=== PATIENT | male | born 1955 | race African-American/Black ===

== ENCOUNTER 2019-01-23 13:19 | Inpatient (IN) | payer OTHER ==
[~2019-01-23] VITALS: Ht 165.1 cm; Wt 61.2 kg
[~2019-01-23 13:19] MED LIST: AMLODIPINE BESY10 MG PO; ASPIR-LOW81 MG PO; ATORVASTATIN CA10 MG PO; AZITHROMYCIN250 MG PO; DIOVAN40 MG PO; EPZICOM1 TAB PO; HYDROCHLOROTHIA25 MG PO; MULTIVITAMINS1 EAC8 PO; PHENERGAN/CODE120 ML PO; RESTORIL7.5 MG PO; REYATAZ200 MG PO; RISPERDAL2 MG PO; VITAMIN D1000 UNI1 PO; ZYPREXA5 MG PO
[2019-01-23] MEDS ORDERED: TRAZODONE HCL50 MG ORAL (13:23)
[2019-01-23] MEDS ORDERED: EVOTAZ 300 MG-1 EACH PO (13:23)
--- NOTE | 2019-01-23 13:25 | NUR ---
ED Nurse Note: Pt came from [facility] due to abcess noted on the rectum "hard as a rock" x 1 week. Pt is complaining of 10/10 pain in the area. Non radiating. Pt is A + O x2-3. Skin warm to touch. Pt is HIV positive.
[2019-01-23 13:29] VITALS: BP 166/111
[2019-01-23] MEDS ORDERED: Morphine Sulfate 4mg/ml Inj (IV USE ONLY) IVP ONE (13:30)
[2019-01-23 14:13] LABS: BASOPHILS % (AUTO) 1.1 % (0.0-2.0); EOSINOPHILS % (AUTO) 0.9 % (0.0-3.0); HEMATOCRIT 47.8 % (42.0-52.0); HEMOGLOBIN 15.8 G/DL (14.2-18.0); LYMPHOCYTES % (AUTO) 51.4 % (20.0-45.0); MEAN CORPUSCULAR VOLUME 93 FL (80-99); MONOCYTES % (AUTO) 9.4 % (1.0-10.0); NEUTROPHILS % (AUTO) 37.1 % (45.0-75.0); PLATELET COUNT 204 K/UL (150-450); RED BLOOD COUNT 5.16 M/UL (4.70-6.10); RED CELL DISTRIBUTION WIDTH 13.7 % (11.6-14.8); WHITE BLOOD COUNT 6.1 K/UL (4.8-10.8)
--- NOTE | 2019-01-23 14:15 | NUR ---
ED Nurse Note: Xray at the bedside.
[2019-01-23 14:30] LABS: ANION GAP 9 mmol/L (5-15); BLOOD UREA NITROGEN 21 mg/dL (7-18); CALCIUM 9.5 MG/DL (8.5-10.1); CARBON DIOXIDE 26 MMOL/L (21-32); CHLORIDE 100 MMOL/L (98-107); CREATININE 0.7 MG/DL (0.55-1.30); POTASSIUM 4.8 MMOL/L (3.5-5.1); SODIUM 135 MMOL/L (136-145)
[2019-01-23 14:36] LABS: APPEARANCE,URINE CLEAR; BILIRUBIN, URINE 1+ (NEGATIVE); COLOR,URINE BROWN; GLUCOSE, URINE (UA) NEGATIVE (NEGATIVE); KETONES,URINE 1+ (NEGATIVE); LEUKOCYTE ESTERASE ,URINE 1+ (NEGATIVE); NITRITE,URINE NEGATIVE (NEGATIVE); PH,URINE 5 (4.5-8.0); PROTEIN,URINE 2+ (NEGATIVE); UROBILINOGEN,URINE 4 MG/DL (0.0-1.0)
[2019-01-23 14:42] LABS: ALANINE AMINOTRANSFERASE 47 U/L (12-78); ALBUMIN/GLOBULIN RATIO 0.4 (1.0-2.7); ALKALINE PHOSPHATASE 70 U/L (46-116); ASPARTATE AMINO TRANSFERASE 69 U/L (15-37); BILIRUBIN,TOTAL 2.4 MG/DL (0.2-1.0); CREATINE KINASE 106 U/L (26-308)
[2019-01-23 14:49] LABS: BILIRUBIN,DIRECT 0.2 MG/DL (0.0-0.3)
[2019-01-23] MEDS ORDERED: Piperacillin/Tazobactam 3.375 GM in NS 110 ML IVPB ONE (15:30)
--- NOTE | 2019-01-23 15:30 | Emergency Room Report ---
History of Present Illness General Chief Complaint: Skin Rash/Abscess Source: Patient, EMS Present Illness HPI Patient presents with several days of worsening pain in his buttock area. There are also some hard bumps in that area. He denies any fevers or chills. He was sent for evaluation of these. He is from a prison facility and spends most of his time sitting. These have not been treated. Patient is HIV positive and stable on antivirals. No fevers, chills, chest pain, palpitations, nausea, vomiting, diarrhea, dysuria , abdominal pain, shortness of breath, depression, visual changes, headache. 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 Reviewed Nursing Documentation: PMH: Agreed; PSxH: Agreed Nursing Documentation-PMH Past Medical History: No History, Except For Hx Cardiac Problems: No - AIDS Hx Hypertension: Yes Hx Diabetes: Yes History Of Psychiatric Problem: Yes Review of Systems All Other Systems: negative except mentioned in HPI Physical Exam Vital Signs Date Time Temp Pulse Resp B/P (MAP) Pulse Ox O2 Delivery O2 Flow Rate FiO2 01/23/19 13:19 98.2 84 18 120/80 94 Room Air Sp02 EP Interpretation: reviewed, normal General Appearance: well appearing, no apparent distress, GCS 15 Head: normocephalic, atraumatic Eyes: bilateral eye normal inspection, bilateral eye PERRL, bilateral eye EOMI ENT: moist mucus membranes Neck: supple Respiratory: lungs clear, normal breath sounds Cardiovascular #1: regular rate, rhythm Cardiovascular #2: 2+ radial (R) Gastrointestinal: normal inspection, normal bowel sounds, non tender, no mass, non-distended Genitourinary: no CVA tenderness Musculoskeletal: back normal, normal range of motion Neurologic: alert, sensory intact, motor weakness - Lower extremity, oriented - X2 Psychiatric: mood/affect normal Skin: warm/dry, other - Area of induration 2 x 4 cm with possible fluctuance and tenderness with erythema. This is in the gluteal area more in the left hand side Medical Decision Making Diagnostic Impression: Primary Impression: Gluteal abscess Additional Impressions: Diabetes Qualified Codes: E11.8 - Type 2 diabetes mellitus with unspecified complications Immunocompromised Horseshoe abscess of ischiorectal space ER Course Patient presents with gluteal pain, inflammation redness. Differential includes abscess, cellulitis amongst others. The patient is not ambulatory and therefore these areas are going to be dependent and may be difficult to treat as an outpatient. The patient does not appear to be toxic at this time. However evaluation will be with EKG, chest x-ray and labs including sed rate and C-reactive protein. Imaging is not indicated at the moment. However broad- spectrum antibiotics are begun. In addition the patient is given analgesia. White blood cell count low. CMP unremarkable. Sed rate normal. C-reactive protein elevated. Patient was examined by Dr. Sarah in the emergency department. Patient improved with treatment. Admit medical floor. Laboratory Tests Test 01/23/19 13:45 01/23/19 14:05 White Blood Count 6.1 K/UL (4.8-10.8) Red Blood Count 5.16 M/UL (4.70-6.10) Hemoglobin 15.8 G/DL (14.2-18.0) Hematocrit 47.8 % (42.0-52.0) Mean Corpuscular Volume 93 FL (80-99) Mean Corpuscular Hemoglobin 30.7 PG (27.0-31.0) Mean Corpuscular Hemoglobin Concent 33.1 G/DL (32.0-36.0) Red Cell Distribution Width 13.7 % (11.6-14.8) Platelet Count 204 K/UL (150-450) Mean Platelet Volume 7.7 FL (6.5-10.1) Neutrophils (%) (Auto) 37.1 % (45.0-75.0) L Lymphocytes (%) (Auto) 51.4 % (20.0-45.0) H Monocytes (%) (Auto) 9.4 % (1.0-10.0) Eosinophils (%) (Auto) 0.9 % (0.0-3.0) Basophils (%) (Auto) 1.1 % (0.0-2.0) Erythrocyte Sedimentation Rate 15 MM/HR (0-20) Prothrombin Time 11.0 SEC (9.30-11.50) Prothrombin Time INR 1.0 (0.9-1.1) PTT 32 SEC (23-33) Sodium Level 135 MMOL/L (136-145) L Potassium Level 4.8 MMOL/L (3.5-5.1) Chloride Level 100 MMOL/L (98-107) Carbon Dioxide Level 26 MMOL/L (21-32) Anion Gap 9 mmol/L (5-15) Blood Urea Nitrogen 21 mg/dL (7-18) H Creatinine 0.7 MG/DL (0.55-1.30) Estimate Glomerular Filtration Rate > 60 mL/min (>60) Glucose Level 105 MG/DL (74-106) Lactic Acid Level 1.20 mmol/L (0.4-2.0) Calcium Level 9.5 MG/DL (8.5-10.1) Magnesium Level 2.3 MG/DL (1.8-2.4) Total Bilirubin 2.4 MG/DL (0.2-1.0) H Direct Bilirubin 0.2 MG/DL (0.0-0.3) Aspartate Amino Transferase (AST) 69 U/L (15-37) H Alanine Aminotransferase (ALT) 47 U/L (12-78) Alkaline Phosphatase 70 U/L (46-116) Total Creatine Kinase 106 U/L (26-308) Troponin I 0.000 ng/mL (0.000-0.056) C-Reactive Protein, Quantitative 3.1 mg/dL (0.00-0.90) H Pro-B-Type Natriuretic Peptide 79 pg/mL (0-125) Total Protein 9.7 G/DL (6.4-8.2) H Albumin 3.0 G/DL (3.4-5.0) L Globulin 6.7 g/dL Albumin/Globulin Ratio 0.4 (1.0-2.7) L Urine Color Brown Urine Appearance Clear Urine pH 5 (4.5-8.0) Urine Specific [place] 1.020 (1.005-1.035) Urine Protein 2+ (NEGATIVE) H Urine Glucose (UA) Negative (NEGATIVE) Urine Ketones 1+ (NEGATIVE) H Urine Blood Negative (NEGATIVE) Urine Nitrite Negative (NEGATIVE) Urine Bilirubin 1+ (NEGATIVE) H Urine Ictotest Negative (NEGATIVE) Urine Urobilinogen 4 MG/DL (0.0-1.0) H Urine Leukocyte Esterase 1+ (NEGATIVE) H Urine RBC 0 /HPF (0 - 0) Urine WBC 0-2 /HPF (0 - 0) Urine Squamous Epithelial Cells Occasional /LPF Urine Bacteria Few /HPF (NONE) Urine Mucus Few /LPF (NONE/OCC) H EKG Diagnostic Results Rate: normal Rhythm: NSR ST Segments: no acute changes - HO enlargement minimal ditch criteria for LVH nonspecific ST-T wave changes Rhythm Strip Diag. Results EP Interpretation: yes Rhythm: NSR, no PVC's, no ectopy Chest X-Ray Diagnostic Results Chest X-Ray Diagnostic Results : Chest X-Ray Ordered: Yes # of Views/Limited/Complete: 1 View Indication: Other EP Interpretation: Yes Interpretation: no consolidation, no effusion, no pneumothorax Impression: No acute disease Electronically Signed by: Electronically signed by Theo Kay MD Last Vital Signs Date Time Temp Pulse Resp B/P (MAP) Pulse Ox O2 Delivery O2 Flow Rate FiO2 01/23/19 21:00 Room Air 01/23/19 20:00 100.6 91 18 112/77 (89) 94 Status: improved Disposition: ADMITTED INPATIENT Condition: Serious Referrals: [facility],REFERR[facility] (PCP) Theo Kay MD Jan 23, 2019 15:30
--- NOTE | 2019-01-23 15:41 | Consultation ---
History of Present Illness General Date patient seen: Jan 23, 2019 Reason for Hospitalization: Skin Rash/Abscess Present Illness HPI This is a very pleasant 63 year old male in custodial who presented with worsening buttock pain for "a few days" Cannot recall when pain began but feels that a few days ago he had difficulty sitting or laying flat on buttock. pain sharp 8/10. no radiation. no prior similar events. no drainage. came to ED for evaluation. labs noted. exam with bilateral buttock cellulitis/ induration with significant tenderness L>R. surgery called to evaluate. patient seen, chart reviewed, patient examined. Allergies: Coded Allergies: No Known Allergies (Unverified , 11/10/12) Medication History Scheduled Amlodipine Besylate* (Amlodipine Besylate*), 10 MG PO DAILY, (Reported) Aspirin* (Aspir-Low*), 81 MG PO DAILY, (Reported) Atazanavir Sulfate (Reyataz), 200 MG PO BID, (Reported) Atazanavir Sulfate/Cobicistat (Evotaz 300 mg-150 mg Tablet), 1 EACH PO DAILY, ( Reported) Atorvastatin Calcium* (Lipitor*), 10 MG PO QHS, (Reported) Azithromycin* (Zithromax*), 250 MG PO DAILY Cholecalciferol (Vitamin D3)* (Vitamin D*), 2,000 UNITS PO DAILY, (Reported) Epzicom (Epzicom Tablet), 1 TAB PO DAILY, (Reported) Hydrochlorothiazide* (Hydrochlorothiazide*), 25 MG PO DAILY, (Reported) Multivitamin With Minerals (Multivitamins With Minerals*), 1 EACH PO DAILY, ( Reported) Olanzapine* (Zyprexa*), 15 MG PO DAILY, (Reported) Promethazine/Codeine* (Phenergan/Codeine*), 5 ML PO Q4H Risperidone* (Risperdal*), 2 MG PO HS, (Reported) Temazepam* (Restoril*), 15 MG PO QHS, (Reported) Trazodone Hcl* (Desyrel*), 50 MG ORAL BEDTIME, (Reported) Valsartan (Diovan), 40 MG PO DAILY, (Reported) Patient History History Provided By: Patient, Medical Record, PMD Healthcare decision maker Resuscitation status Advanced Directive on File Past Medical/Surgical History Past Medical/Surgical History: (1) Abscess Review of Systems Review of Symptoms General ROS: no weight loss or fever Psychological ROS: no depression or mood changes, no memory loss Ophthalmic ROS: no visual changes or eye irritation ENT ROS: no nasal congestion, hearing loss, dizziness Allergy and Immunology ROS: no allergic symptoms or urticaria Hematological and Lymphatic ROS: no swollen glands, unusual bleeding or bruising Endocrine ROS: no polyuria, polydipsia, weight changes, temperature intolerance Respiratory ROS: no cough, shortness of breath, or wheezing Cardiovascular ROS: no chest pain or dyspnea on exertion Gastrointestinal ROS: denies abdominal pain, no bright red blood in stool. Musculoskeletal ROS: no myalgias or arthralgias Neurological ROS: no TIA or stroke symptoms Dermatological ROS: no new or changing skin lesions, rashes or pruritis Physical Exam Physical Exam General appearance: alert, cooperative, no distress, appears stated age Head: Normocephalic, without obvious abnormality, atraumatic Eyes: conjunctivae/corneas clear. PERRL, EOM's intact. Fundi benign Throat: Lips, mucosa, and tongue normal. Teeth and gums normal Neck: supple, symmetrical, trachea midline, no adenopathy, thyroid: not enlarged, symmetric, no tenderness/mass/nodules, no carotid bruit and no JVD Lungs: clear to auscultation bilaterally Heart: regular rate and rhythm, S1, S2 normal, no murmur, click, rub or gallop Abdomen: soft, non-tender. Bowel sounds normal. No masses, no organomegaly Extremities: extremities normal, atraumatic, no cyanosis or edema Pulses: 2+ and symmetric Skin: Skin color, texture, turgor normal. No rashes or lesions. Abnormal bilateral buttock cellulitis and induration with tenderness. no significant area of fluctuance noted. no drainage. erythema. warm. edema. ?horseshoe abscess deep? Neurologic: Grossly normal Last 24 Hour Vital Signs Date Time Temp Pulse Resp B/P (MAP) Pulse Ox O2 Delivery O2 Flow Rate FiO2 01/23/19 14:32 98.1 01/23/19 13:29 98.1 82 27 166/111 100 Room Air 01/23/19 13:19 98.2 84 18 120/80 94 Room Air Laboratory Tests Test 01/23/19 13:45 01/23/19 14:05 White Blood Count 6.1 K/UL (4.8-10.8) Red Blood Count 5.16 M/UL (4.70-6.10) Hemoglobin 15.8 G/DL (14.2-18.0) Hematocrit 47.8 % (42.0-52.0) Mean Corpuscular Volume 93 FL (80-99) Mean Corpuscular Hemoglobin 30.7 PG (27.0-31.0) Mean Corpuscular Hemoglobin Concent 33.1 G/DL (32.0-36.0) Red Cell Distribution Width 13.7 % (11.6-14.8) Platelet Count 204 K/UL (150-450) Mean Platelet Volume 7.7 FL (6.5-10.1) Neutrophils (%) (Auto) 37.1 % (45.0-75.0) L Lymphocytes (%) (Auto) 51.4 % (20.0-45.0) H Monocytes (%) (Auto) 9.4 % (1.0-10.0) Eosinophils (%) (Auto) 0.9 % (0.0-3.0) Basophils (%) (Auto) 1.1 % (0.0-2.0) Erythrocyte Sedimentation Rate 15 MM/HR (0-20) Prothrombin Time 11.0 SEC (9.30-11.50) Prothromb Time International Ratio 1.0 (0.9-1.1) Activated Partial Thromboplast Time 32 SEC (23-33) Sodium Level 135 MMOL/L (136-145) L Potassium Level 4.8 MMOL/L (3.5-5.1) Chloride Level 100 MMOL/L (98-107) Carbon Dioxide Level 26 MMOL/L (21-32) Anion Gap 9 mmol/L (5-15) Blood Urea Nitrogen 21 mg/dL (7-18) H Creatinine 0.7 MG/DL (0.55-1.30) Estimat Glomerular Filtration Rate > 60 mL/min (>60) Glucose Level 105 MG/DL (74-106) Lactic Acid Level 1.20 mmol/L (0.4-2.0) Calcium Level 9.5 MG/DL (8.5-10.1) Magnesium Level 2.3 MG/DL (1.8-2.4) Total Bilirubin 2.4 MG/DL (0.2-1.0) H Direct Bilirubin 0.2 MG/DL (0.0-0.3) Aspartate Amino Transf (AST/SGOT) 69 U/L (15-37) H Alanine Aminotransferase (ALT/SGPT) 47 U/L (12-78) Alkaline Phosphatase 70 U/L (46-116) Total Creatine Kinase 106 U/L (26-308) Troponin I 0.000 ng/mL (0.000-0.056) C-Reactive Protein, Quantitative 3.1 mg/dL (0.00-0.90) H Pro-B-Type Natriuretic Peptide 79 pg/mL (0-125) Total Protein 9.7 G/DL (6.4-8.2) H Albumin 3.0 G/DL (3.4-5.0) L Globulin 6.7 g/dL Albumin/Globulin Ratio 0.4 (1.0-2.7) L Urine Color Brown Urine Appearance Clear Urine pH 5 (4.5-8.0) Urine Specific [place] 1.020 (1.005-1.035) Urine Protein 2+ (NEGATIVE) H Urine Glucose (UA) Negative (NEGATIVE) Urine Ketones 1+ (NEGATIVE) H Urine Blood Negative (NEGATIVE) Urine Nitrite Negative (NEGATIVE) Urine Bilirubin 1+ (NEGATIVE) H Urine Ictotest Negative (NEGATIVE) Urine Urobilinogen 4 MG/DL (0.0-1.0) H Urine Leukocyte Esterase 1+ (NEGATIVE) H Urine RBC 0 /HPF (0 - 0) Urine WBC 0-2 /HPF (0 - 0) Urine Squamous Epithelial Cells Occasional /LPF Urine Bacteria Few /HPF (NONE) Urine Mucus Few /LPF (NONE/OCC) H Height (Feet): 5 Height (Inches): 5.00 Weight (Pounds): 135 Medications Current Medications Medications (Trade) Dose Ordered Sig/Joseph Route PRN Reason Start Time Stop Time Status Last Admin Dose Admin Piperacillin Sod/ Tazobactam Sod 3.375 gm/Sodium Chloride 110 ml @ 220 mls/hr ONCE ONCE IVPB 01/23/19 15:30 01/23/19 15:59 01/23/19 15:32 Sodium Chloride 1,000 ml @ 300 mls/hr Q3H20M IV 01/23/19 13:30 02/22/19 13:29 01/23/19 14:02 Assessment/Plan Problem List: (1) Abscess ICD Codes: L02.91 - Cutaneous abscess, unspecified SNOMED: 305550180 (2) Diabetes ICD Codes: E11.9 - Type 2 diabetes mellitus without complications SNOMED: 77144966 (3) Gluteal abscess ICD Codes: L02.31 - Cutaneous abscess of buttock SNOMED: 23543918 (4) Immunocompromised ICD Codes: D84.9 - Immunodeficiency, unspecified SNOMED: 070258376 (5) Horseshoe abscess of ischiorectal space Assessment & Plan: Given bilaterality if patients presenting symptoms possible horseshoe no fluctuance palpable but does have cellulitis and tenderness no drainage no leukocytosis. Admit to Hospital IV abx IV fluids okay for diet for now NPO p MN will re-evaluate / examine in AM. if not improved will need OR for exploration and possible drainage discussed findings and care plan with patient thank you will follow with recs. ICD Codes: K61.31 - Horseshoe abscess SNOMED: 99868977 Samm Sarah Jan 23, 2019 15:41
[2019-01-23 15:46] VITALS: BP 165/100
--- NOTE | 2019-01-23 15:48 | Diagnostic Imaging Report ---
Indication: Chest pain Technique: One view of the chest Comparison: 11/10/2012 Findings: The heart size is normal. The lungs and pleural spaces are clear. No significant interim change Impression: No acute process
--- NOTE | 2019-01-23 16:10 | NUR ---
ED Nurse Note: Gave telephone report to TRICE Arroyo.
[2019-01-23] MEDS ORDERED: Morphine Sulfate 2mg/ml Inj(IV/IM USE ONLY) IVP PRN (16:15)
[2019-01-23] MEDS ORDERED: Albuterol/Ipratropium 3ml neb HHN PRN (16:15)
[2019-01-23] MEDS ORDERED: Nitroglycerin Subl 0.4mg tab SL PRN (16:15)
[2019-01-23] MEDS ORDERED: Miralax 17gm pkt ORAL PRN (16:15)
--- NOTE | 2019-01-23 16:22 | NUR ---
ED Nurse Note: Pt transferred up to ed surg unit. No acute distress noted. Left ER w/ all belongings.
--- NOTE | 2019-01-23 16:25 | NUR ---
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
[2019-01-23 16:40] VITALS: BP 130/84
[2019-01-23] MEDS ORDERED: Vancomycin 1.25gm Premix IVPB SCH (18:00)
--- NOTE | 2019-01-23 19:25 | NUR ---
HAND-OFF: Report given to CIRILO CARNES.PATIENT STABLE.
--- NOTE | 2019-01-23 19:48 | NUR ---
NURSE NOTES: Received patient in bed, no acute distress noted, VSS, afebrile, call light is within reach, bed is in low position, locked and alarm is on, will continue to monitor for safety and comfort.
[2019-01-23 20:00] VITALS: BP 112/77
--- NOTE | 2019-01-23 20:04 | History & Physical ---
History and Physical History & Physicial Dictated for Int Med-DR Contreras no. [id number] Travon Pena MD Jan 23, 2019 20:04
[2019-01-23] MEDS: TraZODone 50mg tab ORAL SCH (20:55)
[2019-01-23] MEDS: Cefepime HCl 2 GM in D5W 110 ML IV SCH (20:55)
[2019-01-23] MEDS: Heparin 5000 units/ml inj SUBQ SCH (20:57)
[2019-01-24] VITALS (7 sets, daily range): BP systolic 112–143; BP diastolic 75–91
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
[2019-01-24] MEDS ORDERED: Vancomycin 1 GM in D5W 275 ML IV SCH (00:30)
[2019-01-24] MEDS: Vancomycin 750mg/NS 275ml IVPB SCH ×6 (02:27→17:29)
[2019-01-24 06:42] LABS: BASOPHILS % (AUTO) 1.5 % (0.0-2.0); EOSINOPHILS % (AUTO) 1.2 % (0.0-3.0); HEMOGLOBIN 12.3 G/DL (14.2-18.0); LYMPHOCYTES % (AUTO) 53.7 % (20.0-45.0); MEAN CORPUSCULAR VOLUME 93 FL (80-99); NEUTROPHILS % (AUTO) 31.6 % (45.0-75.0); PLATELET COUNT 174 K/UL (150-450); RED CELL DISTRIBUTION WIDTH 13.7 % (11.6-14.8); WHITE BLOOD COUNT 6.4 K/UL (4.8-10.8)
--- NOTE | 2019-01-24 06:51 | NUR ---
HAND-OFF: Report given to Shauna CARNES.
[2019-01-24 07:04] LABS: ALANINE AMINOTRANSFERASE 40 U/L (12-78); ALBUMIN 2.6 G/DL (3.4-5.0); ALBUMIN/GLOBULIN RATIO 0.5 (1.0-2.7); ALKALINE PHOSPHATASE 59 U/L (46-116); ANION GAP 9 mmol/L (5-15); ASPARTATE AMINO TRANSFERASE 40 U/L (15-37); BILIRUBIN,TOTAL 1.6 MG/DL (0.2-1.0); BLOOD UREA NITROGEN 17 mg/dL (7-18); CALCIUM 8.3 MG/DL (8.5-10.1); CARBON DIOXIDE 24 MMOL/L (21-32); CHLORIDE 105 MMOL/L (98-107); CREATININE 0.8 MG/DL (0.55-1.30); POTASSIUM 4.1 MMOL/L (3.5-5.1); SODIUM 138 MMOL/L (136-145)
[2019-01-24 07:05] LABS: BILIRUBIN,DIRECT 0.4 MG/DL (0.0-0.3)
[2019-01-24] MEDS ORDERED: Isovue-300 100ml vial INJ PRN (08:00)
--- NOTE | 2019-01-24 08:00 | NUR ---
NURSE NOTES: Received report from Rachael CARNES, pt a/a/o x4 laying in bed with no signs of distress or other issues at this time. pt is on bed rest, none ambulatory. NPO for CT abd with contrast. IV on the left HAN gauge #22 running D5NS@100ml/hr. call light within reach, bed in lowest position. side rales up x2. I will f/u as needed.
[2019-01-24] MEDS ORDERED: Epzicom tab ORAL SCH (09:00)
[2019-01-24] MEDS: D5NS 1,000 ML IV SCH ×2 (09:14→18:00)
[2019-01-24] MEDS: Cefepime HCl 2 GM in D5W 110 ML IV SCH ×2 (09:15→23:07)
[2019-01-24] MEDS: OLANZapine 10mg tab ORAL SCH (10:25)
[2019-01-24] MEDS: Heparin 5000 units/ml inj SUBQ SCH ×2 (10:27→23:23)
--- NOTE | 2019-01-24 11:19 | Diagnostic Imaging Report ---
Clinical Indication: Pain and swelling of the left buttock Technique: Patient given oral contrast. IV administration nonionic contrast. Venous phase spiral acquisition obtained through the abdomen and pelvis. Multiplanar reconstructions were generated. Total dose length product 888.17 mGycm. CTDIvol(s) 12.33,14.79 mGy. Dose reduction achieved using automated exposure control Comparison: none Findings: There is increased attenuation of the subcutaneous fat of the left posterior perineum and medial buttock. At the superior aspect, there is a small focal area of ill-defined low-attenuation immediately deep to the skin which measures 13 mm in diameter. This does not demonstrate an enhancing rim. No other evidence of fluid. No evidence of diverticulosis or diverticulitis. There is a moderate amount of retained fecal material. The appendix is normal. No small bowel dilatation or small bowel wall thickening. Contrast traverses entirety of the small bowel and reaches the ascending colon. No free or loculated intraperitoneal gas or fluid is evident. There is mild thickening of the distal esophageal wall. The stomach, duodenum are unremarkable. There is a small fat-containing ventral hernia. The liver, gallbladder, bile ducts, pancreas, spleen, adrenals are unremarkable. The kidneys demonstrate bilateral subcentimeter low-attenuation lesions which are too small to characterize. There is also an 11 mm cyst which is clearly fluid attenuation in the upper pole. No renal or ureteral calculi, hydronephrosis, or hydroureter. No pelvic mass or adenopathy. The bladder is distended. The included lung bases demonstrate some atelectatic changes. The bones are unremarkable.. Impression: Increased attenuation of the subcutaneous fat of the inferomedial left buttock, extending slightly into the posterior perineum. Appearance is consistent with cellulitis. There is a subtle area of slightly lower attenuation at the subpleural medial aspect of this without definite rim enhancement measuring 12 mm in diameter which could represent a developing abscess Considerable retained fecal material. Correlate with any history of constipation Mild distal esophageal wall thickening, could indicate esophagitis. Correlate with clinical findings Right renal cysts. Subcentimeter low-attenuation bilateral renal lesions, too small to characterize, most likely benign simple cortical cysts. No further follow-up necessary Basilar pulmonary atelectatic changes, small fat-containing ventral hernia incidentally noted The CT scanner at [facility] is accredited by the [employer] [place] [employer] and the scans are performed using protocols designed to limit radiation exposure to as low as reasonably achievable to attain images of sufficient resolution adequate for diagnostic evaluation.
--- NOTE | 2019-01-24 12:35 | Surgery Progress Note ---
Surgery Progress Note Subjective Additional Comments doing well. states pain improved. no complaints. labs okay. hd stable. no n /v/f/c. Objective Last 24 Hour Vital Signs Date Time Temp Pulse Resp B/P (MAP) Pulse Ox O2 Delivery O2 Flow Rate FiO2 01/24/19 10:26 79 120/91 01/24/19 04:00 98.8 69 18 112/76 (88) 01/24/19 01:42 101.4 01/24/19 01:03 101.4 91 19 142/84 (103) 01/24/19 00:00 101.4 91 18 142/84 (103) 01/23/19 21:00 Room Air 01/23/19 20:00 100.6 91 18 112/77 (89) 94 01/23/19 16:42 Room Air 01/23/19 16:40 98.0 82 18 130/84 (99) 99 01/23/19 16:21 98.5 77 20 149/88 99 Room Air 01/23/19 15:46 98.2 75 25 165/100 99 Room Air 01/23/19 14:32 98.1 01/23/19 13:29 98.1 82 27 166/111 100 Room Air 01/23/19 13:19 98.2 84 18 120/80 94 Room Air I&O Intake and Output 01/23/19 01/24/19 18:59 06:59 Intake Total 100 ml 480 ml Balance 100 ml 480 ml Intake Oral 480 ml IV Total 100 ml # Voids 2 4 Dressing: saturated Wound: clean Drains: none Cardiovascular: RSR Respiratory: clear Abdomen: soft, flat, non-tender, present bowel sounds Extremities: no edema, no tenderness, no cyanosis Laboratory Tests Test 01/23/19 13:45 01/23/19 14:05 01/24/19 05:15 White Blood Count 6.1 K/UL (4.8-10.8) 6.4 K/UL (4.8-10.8) Red Blood Count 5.16 M/UL (4.70-6.10) 4.00 M/UL (4.70-6.10) L Hemoglobin 15.8 G/DL (14.2-18.0) 12.3 G/DL (14.2-18.0) L Hematocrit 47.8 % (42.0-52.0) 37.0 % (42.0-52.0) L Mean Corpuscular Volume 93 FL (80-99) 93 FL (80-99) Mean Corpuscular Hemoglobin 30.7 PG (27.0-31.0) 30.7 PG (27.0-31.0) Mean Corpuscular Hemoglobin Concent 33.1 G/DL (32.0-36.0) 33.1 G/DL (32.0-36.0) Red Cell Distribution Width 13.7 % (11.6-14.8) 13.7 % (11.6-14.8) Platelet Count 204 K/UL (150-450) 174 K/UL (150-450) Mean Platelet Volume 7.7 FL (6.5-10.1) 6.7 FL (6.5-10.1) Neutrophils (%) (Auto) 37.1 % (45.0-75.0) L 31.6 % (45.0-75.0) L Lymphocytes (%) (Auto) 51.4 % (20.0-45.0) H 53.7 % (20.0-45.0) H Monocytes (%) (Auto) 9.4 % (1.0-10.0) 12.0 % (1.0-10.0) H Eosinophils (%) (Auto) 0.9 % (0.0-3.0) 1.2 % (0.0-3.0) Basophils (%) (Auto) 1.1 % (0.0-2.0) 1.5 % (0.0-2.0) Erythrocyte Sedimentation Rate 15 MM/HR (0-20) 70 MM/HR (0-20) H Prothrombin Time 11.0 SEC (9.30-11.50) 11.0 SEC (9.30-11.50) Prothromb Time International Ratio 1.0 (0.9-1.1) 1.0 (0.9-1.1) Activated Partial Thromboplast Time 32 SEC (23-33) 34 SEC (23-33) H Sodium Level 135 MMOL/L (136-145) L 138 MMOL/L (136-145) Potassium Level 4.8 MMOL/L (3.5-5.1) 4.1 MMOL/L (3.5-5.1) Chloride Level 100 MMOL/L (98-107) 105 MMOL/L (98-107) Carbon Dioxide Level 26 MMOL/L (21-32) 24 MMOL/L (21-32) Anion Gap 9 mmol/L (5-15) 9 mmol/L (5-15) Blood Urea Nitrogen 21 mg/dL (7-18) H 17 mg/dL (7-18) Creatinine 0.7 MG/DL (0.55-1.30) 0.8 MG/DL (0.55-1.30) Estimat Glomerular Filtration Rate > 60 mL/min (>60) > 60 mL/min (>60) Glucose Level 105 MG/DL (74-106) 93 MG/DL (74-106) Lactic Acid Level 1.20 mmol/L (0.4-2.0) Calcium Level 9.5 MG/DL (8.5-10.1) 8.3 MG/DL (8.5-10.1) L Magnesium Level 2.3 MG/DL (1.8-2.4) Total Bilirubin 2.4 MG/DL (0.2-1.0) H 1.6 MG/DL (0.2-1.0) H Direct Bilirubin 0.2 MG/DL (0.0-0.3) 0.4 MG/DL (0.0-0.3) H Aspartate Amino Transf (AST/SGOT) 69 U/L (15-37) H 40 U/L (15-37) H Alanine Aminotransferase (ALT/SGPT) 47 U/L (12-78) 40 U/L (12-78) Alkaline Phosphatase 70 U/L (46-116) 59 U/L (46-116) Total Creatine Kinase 106 U/L (26-308) Troponin I 0.000 ng/mL (0.000-0.056) C-Reactive Protein, Quantitative 3.1 mg/dL (0.00-0.90) H 2.8 mg/dL (0.00-0.90) H Pro-B-Type Natriuretic Peptide 79 pg/mL (0-125) Total Protein 9.7 G/DL (6.4-8.2) H 7.9 G/DL (6.4-8.2) Albumin 3.0 G/DL (3.4-5.0) L 2.6 G/DL (3.4-5.0) L Globulin 6.7 g/dL 5.3 g/dL Albumin/Globulin Ratio 0.4 (1.0-2.7) L 0.5 (1.0-2.7) L Urine Color Brown Urine Appearance Clear Urine pH 5 (4.5-8.0) Urine Specific [place] 1.020 (1.005-1.035) Urine Protein 2+ (NEGATIVE) H Urine Glucose (UA) Negative (NEGATIVE) Urine Ketones 1+ (NEGATIVE) H Urine Blood Negative (NEGATIVE) Urine Nitrite Negative (NEGATIVE) Urine Bilirubin 1+ (NEGATIVE) H Urine Ictotest Negative (NEGATIVE) Urine Urobilinogen 4 MG/DL (0.0-1.0) H Urine Leukocyte Esterase 1+ (NEGATIVE) H Urine RBC 0 /HPF (0 - 0) Urine WBC 0-2 /HPF (0 - 0) Urine Squamous Epithelial Cells Occasional /LPF Urine Bacteria Few /HPF (NONE) Urine Mucus Few /LPF (NONE/OCC) H Plan Problems: (1) Abscess (2) Diabetes (3) Gluteal abscess (4) Immunocompromised (5) Horseshoe abscess of ischiorectal space Assessment & Plan: Given bilaterality if patients presenting symptoms possible horseshoe no fluctuance palpable but does have cellulitis and tenderness no drainage no leukocytosis. cellulitis improving mainly left sided now. not much on right small opening with drainage now at apex CT noted without abscess; mainly cellulitis IV abx IV fluids okay for diet for now will follow clinically may develop abscess as cellulitis and phlegmon resolve thank you will follow with recs. Samm Sarah Jan 24, 2019 12:35
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
--- NOTE | 2019-01-24 13:00 | NUR ---
*-* INSURANCE *-* ALL AVAILABLE CLINICALS HAVE BEEN FAXED TO: [facility] KAMLA:WALTER Abad P: [phone] F: [phone] TRACKING# [id number]
--- NOTE | 2019-01-24 13:10 | Diagnostic Imaging Report ---
APPROVED REPORT CPT Code: 48691 Present Symptoms Comments: BILATERAL LEGS PAIN. BILATERAL: Imaging reveals a patent deep venous system bilaterally. There is no evidence of thrombus within the femoral, popliteal or tibial segments. The greater saphenous veins are also within normal limits. Doppler indicates normal spontaneous flow within these segments.
--- NOTE | 2019-01-24 13:20 | NUR ---
CASE MANAGEMENT:REVIEW 63 YR OLD MALE BIBA FROM [facility] CC: LT BUTTOCK ABSCESS X1 WEEK SI: GLUTEAL ABSCESS 98.2 84 18 120/80 94% ON RA TBILI+2.4 IS:1L NS BOLUS IV ZOSYN IV MORPHINE IV ZOFRAN CHEST XRAY BLOOD CX URINE REFLEX : TO MED/SURG 3 EAST IS: IV VANCOMYCIN Q8HRS IV CEFEPIME Q12 IVF@100/HR SURGICAL CONSULT INTERQUAL CRITERIA MET
--- NOTE | 2019-01-24 18:14 | Internal Med Progress Note ---
Subjective Date of Service: Jan 24, 2019 Physician Name Travon Pena Attending Physician Chuy Contreras MD Current Medications Medications (Trade) Dose Ordered Sig/Joseph Route PRN Reason Start Time Stop Time Status Last Admin Dose Admin Acetaminophen (Tylenol) 650 mg Q4H PRN ORAL fever 01/23/19 16:15 02/22/19 16:14 01/24/19 01:11 Albuterol/ Ipratropium (Albuterol/ Ipratropium) 3 ml Q4H PRN HHN Shortness of Breath 01/23/19 16:15 01/28/19 16:14 Amlodipine Besylate (Norvasc) 10 mg DAILY ORAL 01/24/19 09:00 02/23/19 08:59 01/24/19 10:26 Atorvastatin Calcium (Lipitor) 10 mg QHS ORAL 01/23/19 21:00 02/22/19 20:59 01/23/19 20:55 Cefepime HCl 2 gm/ Dextrose 110 ml @ 220 mls/hr EVERY 12 HOURS IV 01/23/19 21:00 01/30/19 20:59 01/24/19 09:15 Dextrose (Dextrose 50%) 25 ml Q30M PRN IV Hypoglycemia 01/23/19 16:15 02/22/19 16:14 Dextrose (Dextrose 50%) 50 ml Q30M PRN IV Hypoglycemia 01/23/19 16:15 02/22/19 16:14 Dextrose/Sodium Chloride 1,000 ml @ 100 mls/hr Q10H IV 01/24/19 08:00 02/23/19 07:59 01/24/19 09:14 Heparin Sodium (Porcine) (Heparin 5000 units/ml) 5,000 units EVERY 12 HOURS SUBQ 01/23/19 21:00 02/22/19 20:59 01/24/19 10:27 Iopamidol (Isovue-300 100ml) 100 ml NOW PRN INJ Radiology Procedure 01/24/19 08:00 01/24/19 23:59 Morphine Sulfate (Morphine Sulfate) 2 mg Q4H PRN IVP Moderate Pain (Pain Scale 4-6) 01/23/19 16:15 01/30/19 16:14 Nitroglycerin (Ntg) 0.4 mg Q5M PRN SL Prn Chest Pain 01/23/19 16:15 02/22/19 16:14 Olanzapine (ZyPREXA) 15 mg DAILY ORAL 01/24/19 09:00 02/23/19 08:59 01/24/19 10:25 Ondansetron HCl (Zofran) 4 mg Q6H PRN IVP Nausea & Vomiting 01/23/19 16:15 02/22/19 16:14 Polyethylene Glycol (Miralax) 17 gm DAILYPRN PRN ORAL Constipation 01/23/19 16:15 02/22/19 16:14 Risperidone (RisperDAL) 2 mg BEDTIME ORAL 01/23/19 21:00 02/22/19 20:59 01/23/19 20:55 Temazepam (Restoril) 15 mg HSPRN PRN ORAL Insomnia 01/23/19 16:15 01/30/19 16:14 Trazodone HCl (Desyrel) 50 mg BEDTIME ORAL 01/23/19 21:00 02/22/19 20:59 01/23/19 20:55 Vancomycin HCl (Vanco rx to dose) 1 ea DAILY PRN MISC Per rx protocol 01/23/19 16:30 02/22/19 16:29 Vancomycin HCl 750 mg/Sodium Chloride 275 ml @ 183.333 mls/hr Q8H IVPB 01/24/19 02:00 01/29/19 01:59 01/24/19 17:29 Allergies: Coded Allergies: No Known Allergies (Unverified , 11/10/12) ROS Limited/Unobtainable: No Constitutional: Reports: no symptoms HEENT: Reports: no symptoms Cardiovascular: Reports: no symptoms Respiratory: Reports: no symptoms Gastrointestinal/Abdominal: Reports: no symptoms Genitourinary: Reports: no symptoms Neurologic/Psychiatric: Reports: no symptoms Subjective 63 YO M admitted with left buttock pain. Now cellulitis and abscess left buttock. Cover for Int malcom-Dr Contreras Objective Last Vital Signs Date Time Temp Pulse Resp B/P (MAP) Pulse Ox O2 Delivery O2 Flow Rate FiO2 01/24/19 16:00 100.0 86 20 121/80 (94) 96 01/24/19 09:00 Room Air Laboratory Tests Test 01/24/19 05:15 01/24/19 16:56 White Blood Count 6.4 K/UL (4.8-10.8) Red Blood Count 4.00 M/UL (4.70-6.10) L Hemoglobin 12.3 G/DL (14.2-18.0) L Hematocrit 37.0 % (42.0-52.0) L Mean Corpuscular Volume 93 FL (80-99) Mean Corpuscular Hemoglobin 30.7 PG (27.0-31.0) Mean Corpuscular Hemoglobin Concent 33.1 G/DL (32.0-36.0) Red Cell Distribution Width 13.7 % (11.6-14.8) Platelet Count 174 K/UL (150-450) Mean Platelet Volume 6.7 FL (6.5-10.1) Neutrophils (%) (Auto) 31.6 % (45.0-75.0) L Lymphocytes (%) (Auto) 53.7 % (20.0-45.0) H Monocytes (%) (Auto) 12.0 % (1.0-10.0) H Eosinophils (%) (Auto) 1.2 % (0.0-3.0) Basophils (%) (Auto) 1.5 % (0.0-2.0) Erythrocyte Sedimentation Rate 70 MM/HR (0-20) H Prothrombin Time 11.0 SEC (9.30-11.50) Prothromb Time International Ratio 1.0 (0.9-1.1) Activated Partial Thromboplast Time 34 SEC (23-33) H Sodium Level 138 MMOL/L (136-145) Potassium Level 4.1 MMOL/L (3.5-5.1) Chloride Level 105 MMOL/L (98-107) Carbon Dioxide Level 24 MMOL/L (21-32) Anion Gap 9 mmol/L (5-15) Blood Urea Nitrogen 17 mg/dL (7-18) Creatinine 0.8 MG/DL (0.55-1.30) Estimat Glomerular Filtration Rate > 60 mL/min (>60) Glucose Level 93 MG/DL (74-106) Calcium Level 8.3 MG/DL (8.5-10.1) L Total Bilirubin 1.6 MG/DL (0.2-1.0) H Direct Bilirubin 0.4 MG/DL (0.0-0.3) H Aspartate Amino Transf (AST/SGOT) 40 U/L (15-37) H Alanine Aminotransferase (ALT/SGPT) 40 U/L (12-78) Alkaline Phosphatase 59 U/L (46-116) C-Reactive Protein, Quantitative 2.8 mg/dL (0.00-0.90) H Total Protein 7.9 G/DL (6.4-8.2) Albumin 2.6 G/DL (3.4-5.0) L Globulin 5.3 g/dL Albumin/Globulin Ratio 0.5 (1.0-2.7) L Vancomycin Level Trough 12.4 ug/mL (5.0-12.0) H Intake and Output 01/23/19 01/24/19 18:59 06:59 Intake Total 100 ml 480 ml Balance 100 ml 480 ml Intake Oral 480 ml IV Total 100 ml # Voids 2 4 Objective PHYSICAL EXAMINATION: GENERAL: The patient is a thin-appearing male, in no apparent distress. HEENT: Eyes, pupils are equal and responsive to light and accommodation. Extraocular movements are intact. NECK: Supple without lymphadenopathy. CHEST: Lungs are clear to auscultation bilaterally without wheezes or rales. CARDIOVASCULAR: Regular rhythm and rate. S1 and S2 are normal without murmurs, rubs, or gallops. ABDOMEN: Soft, nontender, and nondistended. Positive bowel sounds. No evidence of hepatosplenomegaly. Currently, no rebound or guarding noted. EXTREMITIES: Negative for clubbing, cyanosis, or edema. There is an area of erythema on the left buttock with fluctuance. Approximately 5 cm in diameter. NEUROMUSCULAR: Cranial nerves II through XII are grossly intact without focal deficits. Motor strength is 5/5 bilaterally. Deep tendon reflexes are 2+ plantar. Assessment/Plan Assessment/Plan ASSESSMENT: This is a 63-year-old male. 1. Abscess to the left buttock. 2. Cellulitis of left buttock. 3. Hypertension. 4. Human immunodeficiency virus. 5. Hypercholesteremia. TREATMENT: 1. Abscess to the left buttock. The patient has been started empirically on vancomycin and cefepime. A General Surgery consultation has been obtained with Dr. Sarah. The patient may require incision and drainage of abscess during this hospitalization. 2. Hypertension. Continue amlodipine and valsartan as above. 3. Human immunodeficiency virus. Continue Reyataz, Evotaz, and Epzicom as above. 4. Hypercholesterolemia. Pena,Travon MD Jan 24, 2019 18:13
--- NOTE | 2019-01-24 19:46 | NUR ---
HAND-OFF: Report given to Kateryna CARNES, pt in stable condition. during rounds RN's noticed IV site got pull out by pt. incoming RN will start a new IV later on.
[2019-01-24] MEDS: TraZODone 50mg tab ORAL SCH (23:20)
[2019-01-25] MEDS: Vancomycin 750mg/NS 275ml IVPB SCH ×6 (02:45→18:17)
[2019-01-25] MEDS: D5NS 1,000 ML IV SCH ×2 (04:49→14:03)
[2019-01-25 06:47] LABS: ANION GAP 8 mmol/L (5-15); BLOOD UREA NITROGEN 14 mg/dL (7-18); CALCIUM 8.3 MG/DL (8.5-10.1); CARBON DIOXIDE 25 MMOL/L (21-32); CHLORIDE 107 MMOL/L (98-107); CREATININE 0.7 MG/DL (0.55-1.30); POTASSIUM 3.4 MMOL/L (3.5-5.1); SODIUM 140 MMOL/L (136-145)
[2019-01-25 06:53] LABS: HEMATOCRIT 34.2 % (42.0-52.0); HEMOGLOBIN 11.3 G/DL (14.2-18.0); MEAN CORPUSCULAR VOLUME 93 FL (80-99); PLATELET COUNT 166 K/UL (150-450); RED CELL DISTRIBUTION WIDTH 13.5 % (11.6-14.8); WHITE BLOOD COUNT 5.8 K/UL (4.8-10.8)
[2019-01-25 08:00] VITALS: BP 133/83
--- NOTE | 2019-01-25 08:00 | NUR ---
NURSE NOTES: Received report from Kateryna CARNES, pt a/a/o x4 laying in bed with no signs of distress or other issues at this time. IV on the right AC gauge#20 running D5NS @100ml/hr. pt on a regular diet, tolerated well with no signs of n/v. call light within reach, bed in lowest position, side rales up x2. I will f/u as needed.
--- NOTE | 2019-01-25 08:18 | NUR ---
CASE MANAGEMENT:REVIEW 01/25/19 SI: LEFT BUTTOCK ABSCESS AND CELLULITIS HAART REGIMEN 100.0 86 20 121/80 96% ON RA H/H-11.3/34.2 K-3.4 IS: IV VANCOMYCIN Q8HRS IV CEFEPIME Q12 IVF@100/HR HEPARIN SQ Q12 NORVASC PO QD ZYPREXA PO QD RISPERDAL PO QHS : MED/SURG STATUS 3 EAST DCP: PATIENT IS FROM HOME
[2019-01-25] MEDS ORDERED: Heparin 5000 units/ml inj SUBQ SCH (09:00)
[2019-01-25] MEDS: Cefepime HCl 2 GM in D5W 110 ML IV SCH ×2 (09:20→20:17)
[2019-01-25] MEDS: OLANZapine 10mg tab ORAL SCH (09:20)
[2019-01-25] MEDS: Heparin 5000 units/ml inj SUBQ SCH ×2 (09:21→21:00)
--- NOTE | 2019-01-25 11:21 | NUR ---
Social Service Note OXANA met with patient's caser shoe parts from [facility] Lesley Kapoor [phone] and provided updated information. OXANA discussed with possibility of SNF placement if needed for continuation of IV antibiotics. OXANA explained health plan will provided contracted list. Once medically appropriate patient then will return to Assisted Living. Patient with no next of kin. Lesley to be notified of dc location. Will continue to be available as needed.
[2019-01-25 12:00] VITALS: BP 120/75
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
--- NOTE | 2019-01-25 13:49 | NUR ---
*-* INSURANCE *-* ALL AVAILABLE CLINICALS HAVE BEEN FAXED TO: [facility] KAMLA:WALTER Abad P: [phone] F: [phone] TRACKING# [id number]
[2019-01-25 16:00] VITALS: BP 121/71
--- NOTE | 2019-01-25 16:35 | Surgery Progress Note ---
Surgery Progress Note Subjective Symptoms: improved, tolerating diet, passing flatus, BM, pain decreased Additional Comments states he feels much better. no complaints. asking when he can go home Objective Last 24 Hour Vital Signs Date Time Temp Pulse Resp B/P (MAP) Pulse Ox O2 Delivery O2 Flow Rate FiO2 01/25/19 16:00 98.7 78 18 121/71 (88) 96 76 01/25/19 12:00 98.8 76 19 120/75 (90) 94 76 01/25/19 09:20 80 133/83 01/25/19 09:00 Room Air 01/25/19 08:00 98.8 80 17 133/83 (100) 100 80 01/24/19 21:00 Room Air 01/24/19 20:02 82 20 Room Air 21 01/24/19 20:00 98.0 82 18 123/75 (91) 94 I&O Intake and Output 01/24/19 01/25/19 18:59 06:59 Intake Total 1480 ml 480 ml Balance 1480 ml 480 ml Intake Oral 480 ml 480 ml IV Total 1000 ml # Voids 3 3 Dressing: saturated Wound: clean Drains: none Cardiovascular: RSR Respiratory: clear Abdomen: soft, flat, non-tender, present bowel sounds, non-distended Extremities: no edema, no tenderness, no cyanosis Laboratory Tests Test 01/24/19 16:56 01/25/19 05:20 Vancomycin Level Trough 12.4 ug/mL (5.0-12.0) H White Blood Count 5.8 K/UL (4.8-10.8) Red Blood Count 3.70 M/UL (4.70-6.10) L Hemoglobin 11.3 G/DL (14.2-18.0) L Hematocrit 34.2 % (42.0-52.0) L Mean Corpuscular Volume 93 FL (80-99) Mean Corpuscular Hemoglobin 30.6 PG (27.0-31.0) Mean Corpuscular Hemoglobin Concent 33.1 G/DL (32.0-36.0) Red Cell Distribution Width 13.5 % (11.6-14.8) Platelet Count 166 K/UL (150-450) Mean Platelet Volume 6.4 FL (6.5-10.1) L Neutrophils (%) (Auto) % (45.0-75.0) Lymphocytes (%) (Auto) % (20.0-45.0) Monocytes (%) (Auto) % (1.0-10.0) Eosinophils (%) (Auto) % (0.0-3.0) Basophils (%) (Auto) % (0.0-2.0) Differential Total Cells Counted 100 Neutrophils % (Manual) 34 % (45-75) L Lymphocytes % (Manual) 55 % (20-45) H Monocytes % (Manual) 10 % (1-10) Eosinophils % (Manual) 1 % (0-3) Basophils % (Manual) 0 % (0-2) Band Neutrophils 0 % (0-8) Lymphocytes Pending Platelet Estimate Adequate Platelet Morphology Normal Sodium Level 140 MMOL/L (136-145) Potassium Level 3.4 MMOL/L (3.5-5.1) L Chloride Level 107 MMOL/L (98-107) Carbon Dioxide Level 25 MMOL/L (21-32) Anion Gap 8 mmol/L (5-15) Blood Urea Nitrogen 14 mg/dL (7-18) Creatinine 0.7 MG/DL (0.55-1.30) Estimat Glomerular Filtration Rate > 60 mL/min (>60) Glucose Level 107 MG/DL (74-106) H Calcium Level 8.3 MG/DL (8.5-10.1) L Percent CD3 Cells Pending Absolute CD3 Count Pending Percent CD4 Cells Pending Absolute CD4 Count Pending T-Lymphocyte CD4/CD8 Ratio Pending Percent CD8 Cells Pending Absolute CD8 Count Pending HIV-1 RNA (PCR) log10 Value Pending HIV-1 RNA Ultraquantitative (PCR) Pending Plan Problems: (1) Abscess (2) Diabetes (3) Gluteal abscess (4) Immunocompromised (5) Horseshoe abscess of ischiorectal space Assessment & Plan: Given bilaterality if patients presenting symptoms possible horseshoe no fluctuance palpable but does have cellulitis and tenderness no drainage no leukocytosis. cellulitis improving mainly left sided now. not much on right small opening with drainage now at apex CT noted without abscess; mainly cellulitis Impression: Increased attenuation of the subcutaneous fat of the inferomedial left buttock, extending slightly into the posterior perineum. Appearance is consistent with cellulitis. There is a subtle area of slightly lower attenuation at the subpleural medial aspect of this without definite rim enhancement measuring 12 mm in diameter which could represent a developing abscess IV abx IV fluids okay for diet will follow clinically may develop abscess as cellulitis and phlegmon resolve possible d/c planning for tomorrow thank you will follow with recs. Samm Sarah Jan 25, 2019 16:35
[2019-01-25] MEDS ORDERED: D5NS 1000ml IV ONE (17:17)
--- NOTE | 2019-01-25 19:22 | Internal Med Progress Note ---
Subjective Date of Service: Jan 25, 2019 Physician Name Travon Pena Attending Physician Chuy Contreras MD Current Medications Medications (Trade) Dose Ordered Sig/Joseph Route PRN Reason Start Time Stop Time Status Last Admin Dose Admin Acetaminophen (Tylenol) 650 mg Q4H PRN ORAL fever 01/23/19 16:15 02/22/19 16:14 01/24/19 01:11 Albuterol/ Ipratropium (Albuterol/ Ipratropium) 3 ml Q4H PRN HHN Shortness of Breath 01/23/19 16:15 01/28/19 16:14 Amlodipine Besylate (Norvasc) 10 mg DAILY ORAL 01/24/19 09:00 02/23/19 08:59 01/25/19 09:20 Atorvastatin Calcium (Lipitor) 10 mg QHS ORAL 01/23/19 21:00 02/22/19 20:59 01/24/19 23:20 Cefepime HCl 2 gm/ Dextrose 110 ml @ 220 mls/hr EVERY 12 HOURS IV 01/23/19 21:00 01/30/19 20:59 01/25/19 09:20 Cetylpyridinium Chloride (Cepacol) 1 lozg Q2H PRN VIGNESH sore throat 01/25/19 14:15 02/24/19 14:14 01/25/19 14:18 Dextrose (Dextrose 50%) 25 ml Q30M PRN IV Hypoglycemia 01/23/19 16:15 02/22/19 16:14 Dextrose (Dextrose 50%) 50 ml Q30M PRN IV Hypoglycemia 01/23/19 16:15 02/22/19 16:14 Dextrose/Sodium Chloride 1,000 ml @ 100 mls/hr Q10H IV 01/24/19 08:00 02/23/19 07:59 01/25/19 14:03 Heparin Sodium (Porcine) (Heparin 5000 units/ml) 5,000 units EVERY 12 HOURS SUBQ 01/25/19 09:00 02/24/19 08:59 01/25/19 09:21 Morphine Sulfate (Morphine Sulfate) 2 mg Q4H PRN IVP Moderate Pain (Pain Scale 4-6) 01/23/19 16:15 01/30/19 16:14 Nitroglycerin (Ntg) 0.4 mg Q5M PRN SL Prn Chest Pain 01/23/19 16:15 02/22/19 16:14 Olanzapine (ZyPREXA) 15 mg DAILY ORAL 01/24/19 09:00 02/23/19 08:59 01/25/19 09:20 Ondansetron HCl (Zofran) 4 mg Q6H PRN IVP Nausea & Vomiting 01/23/19 16:15 02/22/19 16:14 Polyethylene Glycol (Miralax) 17 gm DAILYPRN PRN ORAL Constipation 01/23/19 16:15 02/22/19 16:14 Risperidone (RisperDAL) 2 mg BEDTIME ORAL 01/23/19 21:00 02/22/19 20:59 01/24/19 23:20 Temazepam (Restoril) 15 mg HSPRN PRN ORAL Insomnia 01/23/19 16:15 01/30/19 16:14 Trazodone HCl (Desyrel) 50 mg BEDTIME ORAL 01/23/19 21:00 02/22/19 20:59 01/24/19 23:20 Vancomycin HCl (Vanco rx to dose) 1 ea DAILY PRN MISC Per rx protocol 01/23/19 16:30 02/22/19 16:29 Vancomycin HCl 750 mg/Sodium Chloride 275 ml @ 183.333 mls/hr Q8H IVPB 01/24/19 02:00 01/29/19 01:59 01/25/19 18:17 Allergies: Coded Allergies: No Known Allergies (Unverified , 11/10/12) ROS Limited/Unobtainable: No Constitutional: Reports: no symptoms HEENT: Reports: no symptoms Cardiovascular: Reports: no symptoms Respiratory: Reports: no symptoms Gastrointestinal/Abdominal: Reports: no symptoms Genitourinary: Reports: no symptoms Neurologic/Psychiatric: Reports: no symptoms Subjective 63 YO M admitted with left buttock pain. Now cellulitis of bilateral buttock. Cover for Int malcom-Dr Contreras Objective Last Vital Signs Date Time Temp Pulse Resp B/P (MAP) Pulse Ox O2 Delivery O2 Flow Rate FiO2 01/25/19 16:00 98.7 78 18 121/71 (88) 96 76 01/25/19 09:00 Room Air 01/24/19 20:02 21 Laboratory Tests Test 01/25/19 05:20 White Blood Count 5.8 K/UL (4.8-10.8) Red Blood Count 3.70 M/UL (4.70-6.10) L Hemoglobin 11.3 G/DL (14.2-18.0) L Hematocrit 34.2 % (42.0-52.0) L Mean Corpuscular Volume 93 FL (80-99) Mean Corpuscular Hemoglobin 30.6 PG (27.0-31.0) Mean Corpuscular Hemoglobin Concent 33.1 G/DL (32.0-36.0) Red Cell Distribution Width 13.5 % (11.6-14.8) Platelet Count 166 K/UL (150-450) Mean Platelet Volume 6.4 FL (6.5-10.1) L Neutrophils (%) (Auto) % (45.0-75.0) Lymphocytes (%) (Auto) % (20.0-45.0) Monocytes (%) (Auto) % (1.0-10.0) Eosinophils (%) (Auto) % (0.0-3.0) Basophils (%) (Auto) % (0.0-2.0) Differential Total Cells Counted 100 Neutrophils % (Manual) 34 % (45-75) L Lymphocytes % (Manual) 55 % (20-45) H Monocytes % (Manual) 10 % (1-10) Eosinophils % (Manual) 1 % (0-3) Basophils % (Manual) 0 % (0-2) Band Neutrophils 0 % (0-8) Lymphocytes Pending Platelet Estimate Adequate Platelet Morphology Normal Sodium Level 140 MMOL/L (136-145) Potassium Level 3.4 MMOL/L (3.5-5.1) L Chloride Level 107 MMOL/L (98-107) Carbon Dioxide Level 25 MMOL/L (21-32) Anion Gap 8 mmol/L (5-15) Blood Urea Nitrogen 14 mg/dL (7-18) Creatinine 0.7 MG/DL (0.55-1.30) Estimat Glomerular Filtration Rate > 60 mL/min (>60) Glucose Level 107 MG/DL (74-106) H Calcium Level 8.3 MG/DL (8.5-10.1) L Percent CD3 Cells Pending Absolute CD3 Count Pending Percent CD4 Cells Pending Absolute CD4 Count Pending T-Lymphocyte CD4/CD8 Ratio Pending Percent CD8 Cells Pending Absolute CD8 Count Pending HIV-1 RNA (PCR) log10 Value Pending HIV-1 RNA Ultraquantitative (PCR) Pending Microbiology Date/Time Source Procedure Growth Status 01/23/19 13:45 Blood Blood Culture - Preliminary NO GROWTH AFTER 24 HOURS Resulted 01/23/19 13:30 Blood Blood Culture - Preliminary NO GROWTH AFTER 24 HOURS Resulted 01/23/19 15:15 Nasal Nares MRSA Culture - Final NO METHICILLIN RESISTANT STAPH AUREUS... Complete 01/23/19 15:15 Rectum VRE Culture - Final NO VANCOMYCIN RESISTANT ENTEROCOCCUS ... Complete 01/23/19 15:15 Rectum - Final NO CARBAPENEM-RESISTANT ENTEROBACTERI... Complete Intake and Output 01/24/19 01/25/19 18:59 06:59 Intake Total 1480 ml 480 ml Balance 1480 ml 480 ml Intake Oral 480 ml 480 ml IV Total 1000 ml # Voids 3 3 Objective PHYSICAL EXAMINATION: GENERAL: The patient is a thin-appearing male, in no apparent distress. HEENT: Eyes, pupils are equal and responsive to light and accommodation. Extraocular movements are intact. NECK: Supple without lymphadenopathy. CHEST: Lungs are clear to auscultation bilaterally without wheezes or rales. CARDIOVASCULAR: Regular rhythm and rate. S1 and S2 are normal without murmurs, rubs, or gallops. ABDOMEN: Soft, nontender, and nondistended. Positive bowel sounds. No evidence of hepatosplenomegaly. Currently, no rebound or guarding noted. EXTREMITIES: Negative for clubbing, cyanosis, or edema. There is an area of erythema on the left buttock with fluctuance. Approximately 5 cm in diameter. NEUROMUSCULAR: Cranial nerves II through XII are grossly intact without focal deficits. Motor strength is 5/5 bilaterally. Deep tendon reflexes are 2+ plantar. Assessment/Plan Assessment/Plan ASSESSMENT: This is a 63-year-old male. 1. Abscess to the left buttock. 2. Cellulitis of bilateral buttock. 3. Hypertension. 4. Human immunodeficiency virus. 5. Hypercholesteremia. TREATMENT: 1. Abscess to the left buttock. The patient has been started empirically on vancomycin and cefepime. A General Surgery consultation has been obtained with Dr. Sarah. The patient does not require incision and drainage of abscess at this time-see surgery note 2. Hypertension. Continue amlodipine and valsartan as above. 3. Human immunodeficiency virus. Continue Lidia George, and Epkeziacom as above. 4. Hypercholesterolemia. Travon Pena MD Jan 25, 2019 19:22
--- NOTE | 2019-01-25 19:30 | NUR ---
NURSE NOTES: Received a report from TRICE Villatoro. Pt is in stable condition. AAOX4. Able to make needs known. No c/o pain/discomfort. IV site is patent and intact. Bed in lowest position. Bed alarm is on. Call light within reach. Will continue to monitor.
--- NOTE | 2019-01-25 19:40 | NUR ---
HAND-OFF: Report given to Farzana CARNES, pt in stable condition.
[2019-01-25 20:00] VITALS: BP 134/83
[2019-01-25] MEDS: TraZODone 50mg tab ORAL SCH (20:17)
[2019-01-26] VITALS (7 sets, daily range): BP systolic 128–147; BP diastolic 83–99
[2019-01-26] MEDS: D5NS 1,000 ML IV SCH ×3 (01:09→20:00)
[2019-01-26] MEDS: Vancomycin 750mg/NS 275ml IVPB SCH ×4 (01:09→10:35)
--- NOTE | 2019-01-26 07:30 | NUR ---
HAND-OFF: Report given to Dayanara Martinez RN.
--- NOTE | 2019-01-26 07:35 | NUR ---
NURSE NOTES: Received report from Farzana CARNES. Patient is stable. Denies pain or SOB. All safety measures provided. Patient in bed with call light within reach. Charge nurse changed nurse-patient assignment. Will hand off patient to Joi CARNES.
--- NOTE | 2019-01-26 07:40 | NUR ---
HAND-OFF: Report given to Joi CARNES. Patient is stable.
--- NOTE | 2019-01-26 08:00 | NUR ---
NURSE NOTES: REPORT RECEIVED FROM BARRERA PENDLETON RN. PATIENT AWAKE IN BED AND PLEASANT. QUESTIONS ANSWERED; NEEDS MET. DISCUSSED PLAN OF CARE FOR THE DAY. VERBALIZED UNDERSTANDING. BED ALARM ACTIVATED. BED IN LOW AND LOCKED POSITION. CALL LIGHT WITHIN REACH.
[2019-01-26 08:37] LABS: HEMATOCRIT 36.1 % (42.0-52.0); HEMOGLOBIN 12.1 G/DL (14.2-18.0); MEAN CORPUSCULAR VOLUME 92 FL (80-99); PLATELET COUNT 190 K/UL (150-450); RED BLOOD COUNT 3.92 M/UL (4.70-6.10); RED CELL DISTRIBUTION WIDTH 13.7 % (11.6-14.8); WHITE BLOOD COUNT 5.8 K/UL (4.8-10.8)
[2019-01-26 08:46] LABS: ANION GAP 9 mmol/L (5-15); BLOOD UREA NITROGEN 9 mg/dL (7-18); CALCIUM 8.6 MG/DL (8.5-10.1); CARBON DIOXIDE 25 MMOL/L (21-32); CHLORIDE 106 MMOL/L (98-107); CREATININE 0.6 MG/DL (0.55-1.30); POTASSIUM 3.6 MMOL/L (3.5-5.1); SODIUM 140 MMOL/L (136-145)
[2019-01-26] MEDS: Heparin 5000 units/ml inj SUBQ SCH (09:00)
[2019-01-26] MEDS: OLANZapine 10mg tab ORAL SCH (09:00)
[2019-01-26] MEDS: Cefepime HCl 2 GM in D5W 110 ML IV SCH (09:01)
--- NOTE | 2019-01-26 09:30 | NUR ---
NURSE NOTES: NOTED LEFT BUTTOCKS ABSCESS SLIGHT MOISTURE BUT INTACT. PATIENT WITH MINIMUM ASSISTANCE REPOSITIONED Q2H. DENIES PAIN TO SITE.
--- NOTE | 2019-01-26 11:21 | NUR ---
SEED PELLETERCASHIER SI:LEFT BUTTOCK ABSCESS AND CELLULITIS HAART REGIMEN VS: BP 132/95, P 86, T 99.5, RR 20, SpO2 97 RBC 3.92, Hgb 12.1, Hct 36.1 IS:NORVASC 10mg ZYPREXA 15mg D5/NS x1L IV CEFEPIME HCI 110ml IV 3E MED/SURG STATUS
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
--- NOTE | 2019-01-26 11:43 | NUR ---
*-* INSURANCE *-* ALL AVAILABLE CLINICALS HAVE BEEN FAXED TO: [facility] KAMLA:WALTER Abad P: [phone] F: [phone] TRACKING# [id number]
[2019-01-26] MEDS ORDERED: BACTRIM SINGLE S1 EA ORAL (12:53)
[2019-01-26] MEDS ORDERED: CEPHALEXIN500 MG ORAL (12:54)
[2019-01-26] MEDS: Cephalexin 500mg cap ORAL SCH ×2 (13:26→17:46)
--- NOTE | 2019-01-26 13:37 | Surgery Progress Note ---
Surgery Progress Note Subjective Additional Comments no acute events. no n/v/f/c. tolerating diet. pain resolved. drainage resolved. doing better Objective Last 24 Hour Vital Signs Date Time Temp Pulse Resp B/P (MAP) Pulse Ox O2 Delivery O2 Flow Rate FiO2 01/26/19 12:00 98.7 90 18 144/99 (114) 98 01/26/19 09:00 Room Air 01/26/19 09:00 86 128/83 01/26/19 08:00 99.1 86 20 128/83 (98) 97 01/26/19 07:36 81 18 Room Air 21 01/26/19 04:00 99.5 79 20 132/95 (107) 95 79 01/26/19 00:00 98.9 81 20 135/87 (103) 98 81 01/25/19 21:00 Room Air 01/25/19 20:00 98.6 83 18 134/83 (100) 97 83 01/25/19 19:21 83 16 Room Air 01/25/19 16:00 98.7 78 18 121/71 (88) 96 76 I&O Intake and Output 01/25/19 01/26/19 19:00 07:00 Intake Total 1600 ml 1525.000 ml Balance 1600 ml 1525.000 ml Intake Oral 400 ml 240 ml IV Total 1200 ml 1285.000 ml # Voids 3 2 Dressing: dry Wound: clean - 1cm healing drainage site at apex Drains: none Cardiovascular: RSR Respiratory: clear Abdomen: soft, flat, present bowel sounds, non-distended Extremities: no tenderness, no cyanosis Laboratory Tests Test 01/26/19 08:25 White Blood Count 5.8 K/UL (4.8-10.8) Red Blood Count 3.92 M/UL (4.70-6.10) L Hemoglobin 12.1 G/DL (14.2-18.0) L Hematocrit 36.1 % (42.0-52.0) L Mean Corpuscular Volume 92 FL (80-99) Mean Corpuscular Hemoglobin 30.9 PG (27.0-31.0) Mean Corpuscular Hemoglobin Concent 33.6 G/DL (32.0-36.0) Red Cell Distribution Width 13.7 % (11.6-14.8) Platelet Count 190 K/UL (150-450) Mean Platelet Volume 6.8 FL (6.5-10.1) Neutrophils (%) (Auto) % (45.0-75.0) Lymphocytes (%) (Auto) % (20.0-45.0) Monocytes (%) (Auto) % (1.0-10.0) Eosinophils (%) (Auto) % (0.0-3.0) Basophils (%) (Auto) % (0.0-2.0) Differential Total Cells Counted 100 Neutrophils % (Manual) 35 % (45-75) L Lymphocytes % (Manual) 52 % (20-45) H Monocytes % (Manual) 11 % (1-10) H Eosinophils % (Manual) 2 % (0-3) Basophils % (Manual) 0 % (0-2) Band Neutrophils 0 % (0-8) Platelet Estimate Adequate Platelet Morphology Normal Sodium Level 140 MMOL/L (136-145) Potassium Level 3.6 MMOL/L (3.5-5.1) Chloride Level 106 MMOL/L (98-107) Carbon Dioxide Level 25 MMOL/L (21-32) Anion Gap 9 mmol/L (5-15) Blood Urea Nitrogen 9 mg/dL (7-18) Creatinine 0.6 MG/DL (0.55-1.30) Estimat Glomerular Filtration Rate > 60 mL/min (>60) Glucose Level 162 MG/DL (74-106) H Calcium Level 8.6 MG/DL (8.5-10.1) Plan Problems: (1) Abscess (2) Diabetes (3) Gluteal abscess (4) Immunocompromised (5) Horseshoe abscess of ischiorectal space Assessment & Plan: Given bilaterality if patients presenting symptoms possible horseshoe no fluctuance palpable but does have cellulitis and tenderness no drainage no leukocytosis. cellulitis improving mainly left sided now. not much on right small opening with drainage now at apex CT noted without abscess; mainly cellulitis Impression: Increased attenuation of the subcutaneous fat of the inferomedial left buttock, extending slightly into the posterior perineum. Appearance is consistent with cellulitis. There is a subtle area of slightly lower attenuation at the subpleural medial aspect of this without definite rim enhancement measuring 12 mm in diameter which could represent a developing abscess cellulitis much improved no longer draining IV abx IV fluids okay for diet will follow clinically d/c planning okay to d/c from surgical standpoint thank you will follow with recs. Samm Sarah Jan 26, 2019 13:36
--- NOTE | 2019-01-26 15:49 | NUR ---
NURSE NOTES: DISCHARGE ORDER RECEIVED FOR PATIENT TO RETURN TO [facility] TODAY. PLACED CALL TO CARINA ARGUETA EXHIBITS COORDINATOR TO PATIENT; LEFT MESSAGE. IN ADDITION, SPOKE TO JUAN @ [facility] OF DISCHARGE WITH PO ANTIBIOTICS. WILL BE TRANSFERRED VIA AMBULANCE TO ROOM 219-A.
--- NOTE | 2019-01-26 16:00 | NUR ---
NURSE NOTES: RECEIVED CALL FROM CARINA ARGUETA ( [employer]ICAL [employer]ODUCTION WORKER). INFORMED OF PATIENT'S DISCHARGE. PATIENT AWARE.
--- NOTE | 2019-01-26 18:58 | NUR ---
HAND-OFF: Report given to SAQIB CARNES.
[2019-01-26] MEDS ORDERED: D5NS 1000ml IV ONE (19:14)
--- NOTE | 2019-01-26 19:30 | NUR ---
NURSE NOTES: Received report from TRICE Tamez. All discharge papers ready. Saline lock was discontinued by AM shift RN. No distress noted, patient awaiting transport to boarding [facility].
--- NOTE | 2019-01-26 19:53 | NUR ---
NURSE NOTES: PATIENT ENDORSED TO SAQIB CARNES. INSTRUCTIONS REVIEWED WITH RN AND PATIENT. RX'S FILLED; ALL BELONGINGS PACKED AND ACCOUNTED FOR. PATIENT AWAITING FOR AMBULANCE SERVICE TO ARRIVE. PER CHARGE NURSE ETA 45 MINS @ 1800.
--- NOTE | 2019-01-26 20:41 | Internal Med Progress Note ---
Subjective Date of Service: Jan 26, 2019 Physician Name Travon Pena Attending Physician Chuy Contreras MD Current Medications Medications (Trade) Dose Ordered Sig/Joseph Route PRN Reason Start Time Stop Time Status Last Admin Dose Admin Acetaminophen (Tylenol) 650 mg Q4H PRN ORAL fever 01/23/19 16:15 02/22/19 16:14 01/24/19 01:11 Albuterol/ Ipratropium (Albuterol/ Ipratropium) 3 ml Q4H PRN HHN Shortness of Breath 01/23/19 16:15 01/28/19 16:14 Amlodipine Besylate (Norvasc) 10 mg DAILY ORAL 01/24/19 09:00 02/23/19 08:59 01/26/19 09:00 Atorvastatin Calcium (Lipitor) 10 mg QHS ORAL 01/23/19 21:00 02/22/19 20:59 01/25/19 20:16 Cephalexin (Keflex) 500 mg Q6HR ORAL 01/26/19 13:00 02/02/19 12:59 01/26/19 17:46 Cetylpyridinium Chloride (Cepacol) 1 lozg Q2H PRN VIGNESH sore throat 01/25/19 14:15 02/24/19 14:14 01/26/19 13:19 Dextrose (Dextrose 50%) 25 ml Q30M PRN IV Hypoglycemia 01/23/19 16:15 02/22/19 16:14 Dextrose (Dextrose 50%) 50 ml Q30M PRN IV Hypoglycemia 01/23/19 16:15 02/22/19 16:14 Dextrose/Sodium Chloride 1,000 ml @ 100 mls/hr Q10H IV 01/24/19 08:00 02/23/19 07:59 01/26/19 09:01 Heparin Sodium (Porcine) (Heparin 5000 units/ml) 5,000 units EVERY 12 HOURS SUBQ 01/25/19 09:00 02/24/19 08:59 01/25/19 09:21 Morphine Sulfate (Morphine Sulfate) 2 mg Q4H PRN IVP Moderate Pain (Pain Scale 4-6) 01/23/19 16:15 01/30/19 16:14 Nitroglycerin (Ntg) 0.4 mg Q5M PRN SL Prn Chest Pain 01/23/19 16:15 02/22/19 16:14 Olanzapine (ZyPREXA) 15 mg DAILY ORAL 01/24/19 09:00 02/23/19 08:59 01/26/19 09:00 Ondansetron HCl (Zofran) 4 mg Q6H PRN IVP Nausea & Vomiting 01/23/19 16:15 02/22/19 16:14 Polyethylene Glycol (Miralax) 17 gm DAILYPRN PRN ORAL Constipation 01/23/19 16:15 02/22/19 16:14 Risperidone (RisperDAL) 2 mg BEDTIME ORAL 01/23/19 21:00 02/22/19 20:59 01/24/19 23:20 Temazepam (Restoril) 15 mg HSPRN PRN ORAL Insomnia 01/23/19 16:15 01/30/19 16:14 Trazodone HCl (Desyrel) 50 mg BEDTIME ORAL 01/23/19 21:00 02/22/19 20:59 01/24/19 23:20 Trimethoprim/ Sulfamethoxazole (Bactrim-DS) 1 tab Q12HR ORAL 01/26/19 21:00 02/02/19 20:59 Allergies: Coded Allergies: No Known Allergies (Unverified , 11/10/12) ROS Limited/Unobtainable: No Constitutional: Reports: no symptoms HEENT: Reports: no symptoms Cardiovascular: Reports: no symptoms Respiratory: Reports: no symptoms Gastrointestinal/Abdominal: Reports: no symptoms Neurologic/Psychiatric: Reports: no symptoms Subjective 63 YO M admitted with left buttock pain. Now cellulitis of bilateral buttock. Cover for Int malcom-Dr Contreras Objective Last Vital Signs Date Time Temp Pulse Resp B/P (MAP) Pulse Ox O2 Delivery O2 Flow Rate FiO2 01/26/19 16:00 99.0 78 20 134/85 (101) 96 01/26/19 09:00 Room Air 01/26/19 07:36 21 Laboratory Tests Test 01/26/19 08:25 White Blood Count 5.8 K/UL (4.8-10.8) Red Blood Count 3.92 M/UL (4.70-6.10) L Hemoglobin 12.1 G/DL (14.2-18.0) L Hematocrit 36.1 % (42.0-52.0) L Mean Corpuscular Volume 92 FL (80-99) Mean Corpuscular Hemoglobin 30.9 PG (27.0-31.0) Mean Corpuscular Hemoglobin Concent 33.6 G/DL (32.0-36.0) Red Cell Distribution Width 13.7 % (11.6-14.8) Platelet Count 190 K/UL (150-450) Mean Platelet Volume 6.8 FL (6.5-10.1) Neutrophils (%) (Auto) % (45.0-75.0) Lymphocytes (%) (Auto) % (20.0-45.0) Monocytes (%) (Auto) % (1.0-10.0) Eosinophils (%) (Auto) % (0.0-3.0) Basophils (%) (Auto) % (0.0-2.0) Differential Total Cells Counted 100 Neutrophils % (Manual) 35 % (45-75) L Lymphocytes % (Manual) 52 % (20-45) H Monocytes % (Manual) 11 % (1-10) H Eosinophils % (Manual) 2 % (0-3) Basophils % (Manual) 0 % (0-2) Band Neutrophils 0 % (0-8) Platelet Estimate Adequate Platelet Morphology Normal Sodium Level 140 MMOL/L (136-145) Potassium Level 3.6 MMOL/L (3.5-5.1) Chloride Level 106 MMOL/L (98-107) Carbon Dioxide Level 25 MMOL/L (21-32) Anion Gap 9 mmol/L (5-15) Blood Urea Nitrogen 9 mg/dL (7-18) Creatinine 0.6 MG/DL (0.55-1.30) Estimat Glomerular Filtration Rate > 60 mL/min (>60) Glucose Level 162 MG/DL (74-106) H Calcium Level 8.6 MG/DL (8.5-10.1) Intake and Output 01/25/19 01/26/19 18:59 06:59 Intake Total 1500 ml 1525.000 ml Balance 1500 ml 1525.000 ml Intake Oral 400 ml 240 ml IV Total 1100 ml 1285.000 ml # Voids 3 2 Objective PHYSICAL EXAMINATION: GENERAL: The patient is a thin-appearing male, in no apparent distress. HEENT: Eyes, pupils are equal and responsive to light and accommodation. Extraocular movements are intact. NECK: Supple without lymphadenopathy. CHEST: Lungs are clear to auscultation bilaterally without wheezes or rales. CARDIOVASCULAR: Regular rhythm and rate. S1 and S2 are normal without murmurs, rubs, or gallops. ABDOMEN: Soft, nontender, and nondistended. Positive bowel sounds. No evidence of hepatosplenomegaly. Currently, no rebound or guarding noted. EXTREMITIES: Negative for clubbing, cyanosis, or edema. There is an area of erythema on the left buttock with fluctuance. Approximately 5 cm in diameter. NEUROMUSCULAR: Cranial nerves II through XII are grossly intact without focal deficits. Motor strength is 5/5 bilaterally. Deep tendon reflexes are 2+ plantar. Assessment/Plan Assessment/Plan ASSESSMENT: This is a 63-year-old male. 1. Abscess to the left buttock. 2. Cellulitis of bilateral buttock. 3. Hypertension. 4. Human immunodeficiency virus. 5. Hypercholesteremia. TREATMENT: 1. Abscess to the left buttock. The patient has been started empirically on vancomycin and cefepime. A General Surgery consultation has been obtained with Dr. Sarah. The patient does not require incision and drainage of abscess at this time-see surgery note 2. Hypertension. Continue amlodipine and valsartan as above. 3. Human immunodeficiency virus. Continue Reyataz, Evotaz, and Epzicom as above. 4. Hypercholesterolemia. Travon Pena MD Jan 26, 2019 20:41
[2019-01-26] MEDS ORDERED: Bactrim-DS 1 tab ORAL SCH (21:00)
--- NOTE | 2019-01-26 21:15 | NUR ---
NURSE NOTES: Report given to transport. Called [facility], spoke with Roderick, notified that patient is on his way. ID bracelet removed. No distress noted. Notified transport that patient refused 2100 medications. All belongings and medication bag going with patient.
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
--- NOTE | 2019-01-27 15:53 | Cardiology Report ---
APPROVED REPORT EKG Measurement Heart [id number] Normal sinus rhythm Right atrial enlargement Minimal voltage criteria for LVH, may be normal variant Prolonged QT Abnormal ECG
== END 2019-01-26 21:15 | disposition home or self-care (01) | DRG 894 ==
LOC: EDBD 13:19 → EMR 14:33 → 3E 14:55 → EDBEDREQ 15:20
DX: L02.31 Cutaneous abscess of buttock (principal); B20 Human immunodeficiency virus [HIV] disease; E11.9 Type 2 diabetes mellitus without complications; E78.00 Pure hypercholesterolemia, unspecified; F17.200 Nicotine dependence, unspecified, uncomplicated; L03.317 Cellulitis of buttock; I10 Essential (primary) hypertension; Z79.82 Long term (current) use of aspirin
CPT/HCPCS: 36415; 71045; 74177; 80048; 80053; 80202; 81003; 82248; 82550; 83605; 83735; 83880; 84484; 85007; 85025; 85610; 85651; 85730; 86140; 86360; 86850; 86900; 86901; 87040; 87081; 87536; 93005; 93970; 94664; 96361; 96365; 96375; 99285; J2405; J8499

== ENCOUNTER 2019-02-23 11:24 | Emergency (ER) | payer MEDICAID, OTHER ==
[~2019-02-23] VITALS: Ht 165.1 cm; Wt 61.2 kg
[~2019-02-23 11:24] MED LIST changes: +BACTRIM SINGLE S1 EA ORAL; +CEPHALEXIN500 MG ORAL; +EVOTAZ 300 MG-1 EACH PO; +TRAZODONE HCL50 MG ORAL
[2019-02-23 11:30] VITALS: BP 122/82
[2019-02-23] MEDS ORDERED: ZYPREXA10 MG ORAL (11:43)
[2019-02-23] MEDS ORDERED: PROAIR HFA8.5 GM INH (11:43)
[2019-02-23] MEDS ORDERED: RISPERDAL2 MG ORAL (11:43)
[2019-02-23] MEDS ORDERED: TRUVADA1 TAB ORAL (11:43)
[2019-02-23] MEDS ORDERED: EPZICOM1 TAB ORAL (11:43)
[2019-02-23] MEDS ORDERED: NORVIR100 MG ORAL (11:43)
[2019-02-23] MEDS ORDERED: AMLODIPINE BESY10 MG ORAL (11:43)
[2019-02-23] MEDS ORDERED: TRAZODONE HCL150 MG ORAL (11:43)
[2019-02-23] MEDS ORDERED: REYATAZ150 MG ORAL (11:43)
[2019-02-23] MEDS ORDERED: SKIN TREATMENT225 GM TP (11:43)
[2019-02-23] MEDS ORDERED: EVOTAZ 300 MG-1 EACH PO (11:43)
--- NOTE | 2019-02-23 12:19 | Diagnostic Imaging Report ---
INDICATION: Knee Pain COMPARISON: None 3 views of the left knee were obtained. FINDINGS: No acute fracture, malalignment, or joint effusion are identified. Joint space is relatively well-maintained. There is irregularity of the medial metaphysis of the tibia. This may be postsurgical in nature or from prior trauma. Impression: Negative for acute injury
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
[2019-02-23] MEDS ORDERED: TYLENOL EXTRA500 MG ORAL (13:00)
[2019-02-23 13:22] VITALS: BP 118/76
--- NOTE | 2019-02-25 14:41 | Emergency Room Report ---
History of Present Illness General Chief Complaint: Pain Source: Patient, EMS Present Illness HPI 63-year-old male presents ED for evaluation. Brought in from boarding care. Had a mechanical fall today landing on his knees. No reported head injury. Witnessed. Patient complaining of bilateral knee pain. Pain is dull, 6 out of 10, nonradiating. Denies any other injuries. Denies any headaches blurry vision nausea or vomiting. Denies any chest pain or shortness. Denies any abdominal pain. No other aggravating relieving factors. Denies any other associated symptoms Allergies: Coded Allergies: No Known Allergies (Unverified , 11/10/12) Patient History Past Medical History: DM, HTN, psych hx, HIV Past Surgical History: none Pertinent Family History: none Social History: Denies: smoking, alcohol use, drug use Immunizations: UTD Reviewed Nursing Documentation: PMH: Agreed; PSxH: Agreed Nursing Documentation-PMH Past Medical History: No History, Except For Hx Cardiac Problems: Yes - HIV Hx Hypertension: Yes Hx Diabetes: Yes History Of Psychiatric Problem: Yes - Psychosis Review of Systems All Other Systems: negative except mentioned in HPI Physical Exam Vital Signs Date Time Temp Pulse Resp B/P (MAP) Pulse Ox O2 Delivery O2 Flow Rate FiO2 02/23/19 11:21 98.4 70 18 118/80 (93) 96 Room Air Sp02 EP Interpretation: reviewed, normal General Appearance: no apparent distress, alert, GCS 15, non-toxic Head: normocephalic, atraumatic Eyes: bilateral eye normal inspection, bilateral eye PERRL ENT: hearing grossly normal, normal pharynx, no angioedema, normal voice Neck: full range of motion, supple/symm/no masses Respiratory: chest non-tender, lungs clear, normal breath sounds, speaking full sentences Cardiovascular #1: regular rate, rhythm, no edema Cardiovascular #2: 2+ carotid (R), 2+ carotid (L), 2+ radial (R), 2+ radial (L) , 2+ dorsalis pedis (R), 2+ dorsalis pedis (L) Gastrointestinal: normal bowel sounds, non tender, soft, non-distended, no guarding, no rebound Rectal: deferred Genitourinary: normal inspection, no CVA tenderness Musculoskeletal: back normal, gait/station normal, normal range of motion, tender - billateral knee Neurologic: alert, oriented x3, responsive, motor strength/tone normal, sensory intact, speech normal Psychiatric: judgement/insight normal, memory normal, anxious, other - flat affect Reflexes: 3+ bicep (R), 3+ bicep (L), 3+ tricep (R), 3+ tricep (L), 3+ knee (R) , 3+ knee (L) Skin: normal color, no rash, warm/dry, well hydrated Lymphatic: no adenopathy Medical Decision Making Diagnostic Impression: Primary Impression: Knee contusion Qualified Codes: S80.00XA - Contusion of unspecified knee, initial encounter ER Course Hospital Course 63 yo M presents to ED c/o bilateral knee pain s/p fall Differential diagnoses include: Fracture, dislocation, sprain, contusion Clinical course Patient placed on stretcher. After initial history and physical, I ordered pain medications and Xrays of bilateral knees Xrays read shows no acute fracture/dislocation. discussed findings with patient. Discharge back to [facility]. We'll arrange transportation we'll provide ortho referrals Diagnosis - knee contusion Stable and discharged to home with prescription for tylenol. apply ice, keep elevated. weight bear as tolerated. Followup with ortho. Return to ED if symptoms recur or worsen Other X-Ray Diagnostic Results Other X-Ray Diagnostic Results #1: X-Ray ordered: R knee # of Views/Limited Vs Complete: 3 View Indication: Pain EP Interpretation: Yes Interpretation: no dislocation, no soft tissue swelling, no fractures Impression: No acute disease Electronically Signed by: Electronically signed by Scott Duncan MD Other X-Ray Diagnostic Results #2: X-Ray ordered: L knee # of Views/Limited Vs Complete: 3 View Indication: Pain EP Interpretation: Yes Interpretation: no dislocation, no soft tissue swelling, no fractures Impression: No acute disease Electronically Signed by: Electronically signed by Scott Duncan MD Last Vital Signs Date Time Temp Pulse Resp B/P (MAP) Pulse Ox O2 Delivery O2 Flow Rate FiO2 02/23/19 13:22 98.3 72 16 118/76 97 Room Air Status: improved Disposition: HOME, SELF-CARE Condition: Stable Scripts Acetaminophen* (TYLENOL EXTRA STRENGTH*) 500 Mg Tablet 500 MG ORAL Q8H PRN for Prn Headache/Temp > 101, #30 TAB 0 Refills Prov: Scott Duncan MD 02/23/19 Referrals: NOT CHOSEN IPA/,REFERRING (PCP) [facility] Open 24 hour /7 days a week by Appointment Only [address] [facility] [id number] Patient Instructions: Knee Pain, [id number] Scott Duncan MD February 25, 2019 14:41
== END 2019-02-23 13:58 | disposition home or self-care (01) ==
LOC: EDBD 11:24 → MERGE 11:24 → EMR 11:59
DX: S80.02XA Contusion of left knee, initial encounter (principal); S80.01XA Contusion of right knee, initial encounter; W19.XXXA Unspecified fall, initial encounter; Y92.049 Unspecified place in boarding-house as the place of occurrence of the external cause; E11.9 Type 2 diabetes mellitus without complications; I10 Essential (primary) hypertension
CPT/HCPCS: 99284